=== PATIENT | male | born 1970 | race Caucasian/White ===

== ENCOUNTER 2017-12-17 06:34 | Day surgery (SDC) | payer OTHER ==
[2017-12-16 12:04] VITALS: BMI 29.9
[2017-12-17 07:56] LABS: #Basophils 0.1 thou/uL (0.0-0.2); #Eosinphils 0.3 thou/uL (0.0-0.7); #Lymphocytes 2.2 thou/uL (1.20-3.40); #Monocytes 0.6 thou/uL (0.11-0.59); #Neutrophils 4.5 thou/uL (1.40-6.50); %Basophils 1.1 % (0.0-1.0); %Eosinophils 3.9 % (0.0-10.0); %Lymphocytes 28.8 % (21.0-51.0); %Monocytes 7.9 % (0.0-10.0); %Neutrophils 58.4 % (42.0-75.0); Hemoglobin 15.3 g/dL (14.0-18.0); Mean Corpuscular HGB CONC 32.5 g/dL (32.0-36.0); Mean Corpuscular Hemoglobin 29.6 pg (27.0-31.0); Mean Platelet Volume 7.3 fL (7.4-10.4); Platelet Count 256 thou/uL (130-400); RBC Distribution Width 12.5 % (11.5-14.5); Red Blood Cell (RBC) Count 5.16 mill/uL (4.70-6.10); White Blood Cell (WBC) Count 7.8 thou/uL (4.8-10.8)
[2017-12-17] MEDS ORDERED: Ketorolac Tromethamine 30 MG/ML VIAL ONE (07:57)
[2017-12-17] MEDS ORDERED: CEFAZOLIN/Water 2 GM/20 ML SYRINGE ONE (07:57)
[2017-12-17 08:29] LABS: Anion Gap 13 mmol/L (10-20); BUN (Urea Nitrogen) 16 mg/dL (8.9-20.6); Calc. Creatinine Clearance 115 mL/min (70-130); Calcium 9.8 mg/dL (7.8-10.44); Carbon Dioxide 22 mmol/L (22-29); Chloride 108 mmol/L (98-107); Estimated GFR-MDRD 64; Glucose 95 mg/dL (70-105); Potassium 3.8 mmol/L (3.5-5.1); Sodium 139 mmol/L (136-145)
[2017-12-17] MEDS ORDERED: Fentanyl 250 MCG/5 ML VIAL ONE (09:06)
[2017-12-17] MEDS ORDERED: ePHEDrine/0.9% NaCl/PF SYRINGE 50 mg/10 ml ONE (13:54)
[2017-12-17] MEDS ORDERED: Glycopyrrolate 0.2 MG/ML 5 ML SYRINGE ONE (13:54)
[2017-12-17] MEDS ORDERED: PROPOFOL 200 MG/20 ML VIAL ONE (13:54)
[2017-12-17] MEDS ORDERED: PHENYLEPHRINE-NS 100 MCG/ML 10 ML SYRINGE ONE (13:54)
[2017-12-17] MEDS ORDERED: Ondansetron HCl/PF 4 MG/2 ML Vial ONE (13:54)
[2017-12-17] MEDS ORDERED: Dexamethasone 20 MG/5 ML VIAL ONE (13:54)
[2017-12-17] MEDS ORDERED: Lidocaine 1% PF 5 ML VIAL ONE (13:54)
--- NOTE | 2017-12-21 10:39 | OP ---
DATE OF PROCEDURE: 12/17/2017 PREOPERATIVE DIAGNOSIS: Left inguinal hernia (large inguinoscrotal hernia). POSTOPERATIVE DIAGNOSIS: Left inguinal hernia (large inguinoscrotal hernia) with finding of a large indirect inguinal hernia. OPERATION PERFORMED: Left inguinal hernia repair with extra large mesh patch and plug. SURGEON: Scott Barros M.D. ANESTHESIA: General with laryngeal mask airway. INDICATIONS: The patient is a 47-year-old white male. He presents with a large left inguinal hernia . For this reason, I recommended to be performed as an open rather than a robotic case. DESCRIPTION OF OPERATION: Informed consent was obtained. The patient is taken to the operating room where general anesthesia obtained with the patient in supine position. Left groin was trimmed of nieto ir, prepped with ChloraPrep, draped in sterile fashion. Local anesthetic was infiltrated using 0.25% Marcaine with epinephrine. Oblique left inguinal incision was created and dissection was carried th rough skin and subcutaneous tissue down to the fascia. The fascia was opened parallel to its fibers so as to open the external ring. Careful dissection was carried out in the inguinal canal to isolate the spermatic cord. This was dissected circumferentially and controlled with Antoni drain. The co rd was extremely enlarged and thickened. Initial dissection revealed that there was no obvious floor of the inguinal canal and I suspect therefore that this was a direct hernia. I began dissection wit hin the cord and was able to isolate the cord structures laterally. The hernia was quickly identifie d and was large and appeared to be very thick walled. I was initially concerned that this may be her niated bladder. I completely isolated the hernia sac medially from the cord structures laterally. I identified the inferior epigastric vessels on the lateral aspect of the hernia. I circumscribed the hernia using electrocautery, taking care to avoid injury to the epigastric vessels. I obtained an e xtra-large mesh plug and secured just at apex of the hernia sac and inverted the complex into the pre peritoneal space. I secured the plug to surrounding fascial structures with interrupted sutures of 2 -0 Vicryl. I placed two imbricating sutures to close the defect over the plug. Mesh patch was obtai magnolia, trimmed to appropriate size, placed within the floor of the inguinal canal, and secured in place with several interrupted sutures of 2-0 Vicryl. The fascia was then closed with a running suture of 3-0 Vicryl. Remainder of the wound closed in layers with 3-0 and 4-0 Monocryl. Additional local an esthetic was infiltrated into the wound during closure. Dermabond was placed externally. There were no complications. Patient tolerated the procedure well and was taken to recovery room in stable con dition.
== END 2017-12-17 13:15 | disposition home or self-care (01) ==
LOC: SDC 06:34
PROVIDERS: ATTEND Specialist
PROC: 0YU60JZ Supplement Left Inguinal Region with Synthetic Substitute, Open Approach (ICD-10-PCS; principal; 2017-12-17)
DX: K40.90 Unilateral inguinal hernia, without obstruction or gangrene, not specified as recurrent (principal); I10 Essential (primary) hypertension; F17.200 Nicotine dependence, unspecified, uncomplicated; Z88.0 Allergy status to penicillin; Z88.2 Allergy status to sulfonamides; Z98.890 Other specified postprocedural states
CPT/HCPCS: 36415; 80048; 85025; C1781; J0131; J1100; J1885; J2001; J2405; J2704; J3010

== ENCOUNTER 2022-07-28 07:35 | Outpatient (CLI) | payer BC ==
[2022-07-28 08:56] LABS: Bilirubin Neg (Negative); Blood, Urine Negative (Negative); Clarity Clear (Clear); Glucose, Urine (Dipstick) Normal (Negative); Ketone, Urine Negative (Negative); Leukocyte 25 (Negative); Nitrite Negative (Negative); Protein, Urine (Dipstick) 15 mg/dl (Neg-Trace); Specific Gravity, Urine 1.015 (1.005-1.030); Urobilinogen Normal mg/dL (Less than 2)
[2022-07-28 09:04] LABS: Hemoglobin 13.2 g/dL (13.5-17.5); Mean Corpuscular HGB CONC 31.6 g/dL (32.0-36.0); Mean Corpuscular Hemoglobin 27.9 pg (27.0-33.0); Mean Corpuscular Volume 88.4 fl (81.2-95.1); Mean Platelet Volume 10.3 fl (7.4-10.4); Platelet Count 274 10x3/uL (150-450); RBC Distribution Width 12.9 % (11.5-14.5); Red Blood Cell (RBC) Count 4.73 10x6/uL (4.32-5.72); White Blood Cell (WBC) Count 5.4 10x3/uL (3.5-10.5)
[2022-07-28 09:40] LABS: Bacteria/HPF None Seen HPF (None Seen); RBC/HPF 0-3 HPF (0-3); Squamous Epithelial None Seen HPF (0-3)
[2022-07-28 09:43] LABS: INR-International Normal Ratio 0.9; PTT 26.7 sec (22.0-33.0); Prothrombin Time 9.7 sec (9.5-12.1)
[2022-07-28 09:45] LABS: Anion Gap 13 mmol/L (10-20); BUN (Urea Nitrogen) 15 mg/dL (8.4-25.7); Calc. Creatinine Clearance 0 mL/min (70-130); Calcium 9.4 mg/dL (7.8-10.44); Carbon Dioxide 22 mmol/L (22-29); Chloride 111 mmol/L (98-107); Estimated GFR 75; Glucose 87 mg/dL (70-105); Potassium 4.2 mmol/L (3.5-5.1); Sodium 142 mmol/L (136-145)
== END 2022-07-28 07:36 | disposition home or self-care (01) ==
LOC: LABBT 07:35
PROVIDERS: ATTEND Urology
DX: Z01.818 Encounter for other preprocedural examination (principal); N40.1 Benign prostatic hyperplasia with lower urinary tract symptoms; R35.1 Nocturia; E29.1 Testicular hypofunction; D64.9 Anemia, unspecified
CPT/HCPCS: 80048; 81001; 85027; 85610; 85730; 87086; 93005; 93010

== ENCOUNTER 2025-07-27 10:30 | Outpatient (CLI) | payer BC ==
[2025-07-27 11:37] LABS: #Basophils 0.06 10x3/uL (0.0-0.2); #Eosinophils 0.22 10x3/uL (0.0-0.7); #Monocytes 0.93 10x3/uL (0.11-0.59); #Neutrophils 6.89 10x3/uL (1.40-6.50); %Basophils 0.6 % (0.0-1.0); %Eosinophils 2.3 % (0.0-10.0); %Lymphocytes 13.3 % (21.0-51.0); %Monocytes 9.9 % (0.0-10.0); %Neutrophils 73.4 % (42.0-75.0); Hematocrit 50.3 % (42.0-52.0); Hemoglobin 16.5 g/dL (14.0-18.0); Mean Corpuscular Hemoglobin 29.3 pg (27.0-31.0); Mean Corpuscular Volume 89.3 fL (78.0-98.0); Platelet Count 246 10x3/uL (130-400); Red Blood Cell (RBC) Count 5.63 mill/uL (4.70-6.10); White Blood Cell (WBC) Count 9.40 10x3/uL (4.8-10.8)
[2025-07-27 11:50] LABS: Bacteria/HPF 1+ HPF (None Seen); Glucose, Urine (Dipstick) Normal (Negative); Leukocyte 250 Leu/uL (Negative); Protein, Urine (Dipstick) 10 mg/dL (Neg-Trace); RBC/HPF 0-3 HPF (0-3); Specific Gravity, Urine 1.022 (1.002-1.036)
[2025-07-27 11:51] LABS: Anion Gap 14 mmol/L (10-20); BUN (Urea Nitrogen) 16 mg/dL (8.4-25.7); Calc. Creatinine Clearance 0 mL/min (70-130); Calcium 9.5 mg/dL (7.8-10.44); Carbon Dioxide 20 mmol/L (22-29); Chloride 109 mmol/L (98-107); Glucose 98 mg/dL (70-105); Potassium 4.1 mmol/L (3.5-5.1); Sodium 139 mmol/L (136-145)
[2025-07-27 11:54] LABS: INR-International Normal Ratio 0.9; PTT 29.0 sec (22.9-36.1); Prothrombin Time 12.5 sec (12.0-14.7)
== END 2025-07-27 10:31 | disposition home or self-care (01) ==
LOC: LABBT 10:30
PROVIDERS: ATTEND Urology
DX: Z01.818 Encounter for other preprocedural examination (principal); N40.1 Benign prostatic hyperplasia with lower urinary tract symptoms; E29.1 Testicular hypofunction; R35.1 Nocturia; D64.9 Anemia, unspecified; N21.0 Calculus in bladder; N39.0 Urinary tract infection, site not specified
CPT/HCPCS: 80048; 81001; 85025; 85610; 85730; 87086; 93005; 93010

== ENCOUNTER 2025-08-10 08:19 | Day surgery (SDC) | payer BC ==
[2025-07-27 10:57] VITALS: BMI 32.1
[2025-08-10] MEDS ORDERED: LevoFLOXacin D5W 500 mg (100 mL) BAG ONE (09:50)
[2025-08-10] MEDS ORDERED: Ondansetron PF 4 MG/2 ML Vial ONE (10:52)
[2025-08-10] MEDS ORDERED: fentaNYL PF 100 MCG/2 ML SYRINGE ONE ×2 (10:52→12:24)
[2025-08-10] MEDS ORDERED: PROPOFOL 200 MG/20 ML VIAL ONE (11:12)
[2025-08-10] MEDS ORDERED: Ketorolac Tromethamine 30 MG (1 mL) VIAL ONE (11:12)
[2025-08-10] MEDS ORDERED: PHENYLEPHRINE-NS 100 MCG/ML 10 ML SYRINGE ONE (11:40)
[2025-08-10] MEDS ORDERED: Oxybutynin 5 MG TAB ONE (12:13)
[2025-08-10] MEDS ORDERED: HYDROmorphone 0.5 MG/0.5 ML SYRINGE ONE (12:25)
== END 2025-08-10 18:48 | disposition home or self-care (01) ==
LOC: SDC 08:19
PROVIDERS: ATTEND Urology
PROC: 0VT08ZZ Resection of Prostate, Via Natural or Artificial Opening Endoscopic (ICD-10-PCS; principal; 2025-08-10)
DX: N40.1 Benign prostatic hyperplasia with lower urinary tract symptoms (principal); N13.8 Other obstructive and reflux uropathy; I10 Essential (primary) hypertension; Z79.899 Other long term (current) drug therapy; Z88.0 Allergy status to penicillin; Z88.2 Allergy status to sulfonamides
CPT/HCPCS: A4333; J1171; J1885; J1956; J2405; J2704